=== PATIENT | male | born 1975 | race Two or more races ===

== ENCOUNTER 2017-01-03 08:40 | Emergency (ER) | payer MEDICAID ==
[~2017-01-03] VITALS: Ht 160 cm; Wt 78.0 kg
[~2017-01-03 08:40] MED LIST: IBUP-1542 PO; NO MEDS
[2017-01-03 09:14] VITALS: Ht 160 cm; Wt 78.0 kg
--- NOTE | 2017-01-03 09:47 | ERD ---
ER Documentation Chief Complaint Date/Time DATE: 01/03/17 TIME: 09:40 Chief Complaint ayala today HPI 41-year-old male presents emergency department for headache that is on and off for about a week. Also complains of cough and congestion. stated that there was no changes in his mentation is in the symmetry on his face. Denies that this is the worst headache of his life, head injury, loss of consciousness, dizziness, blurry vision, changes in vision, photophobia, facial pain, ear pain, throat pain, difficulty swallowing, neck pain, shoulder pain, chest pain, cough, hemoptysis, abdominal pain, back pain, loss of appetite, nausea, vomiting, hematochezia, diarrhea, constipation, urinary symptoms, bladder and bowel incontinences, extremity weakness, extremity tenderness, numbness or tingling sensation, difficulty walking, recent travel, recent exposure to illness, recent antibiotic use in the last 3 months, fever, chills. No known drug allergies. No past medical history. No surgical history. Medication: Motrin. 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 Denies smoking, use of alcohol, use of illegal drugs. ROS All systems reviewed and are negative except as per history of present illness. Medications Home Meds Active Scripts Cyclobenzaprine Hcl* (Cyclobenzaprine Hcl*) 10 Mg Tablet, 10 MG PO Q12 Y for pain/muscle pain, #15 TAB Prov:YOLANDA BROWN 01/03/17 Ibuprofen* (Motrin*) 800 Mg Tab, 800 MG PO Q8 Y for PAIN AND OR ELEVATED TEMP, # 30 TAB Prov:YOLANDA BROWN 01/03/17 Amoxicillin* (Amoxicillin*) 500 Mg Cap, 500 MG PO TID for 7 Days, CAP Prov:YOLANDA RBOWN 01/03/17 Ibuprofen* (Motrin*) 600 Mg Tab, 600 MG PO Q6H Y for PAIN AND OR ELEVATED TEMP, #30 TAB Prov:JOSEFINA KENADLL MD 02/03/16 Reported Medications [No Meds] No Conflict Check 10/23/09 Allergies Allergies: Coded Allergies: No Known Allergies (Verified Allergy, Mild, 10/23/09) PMhx/Soc History of Surgery: No Anesthesia Reaction: No Hx Neurological Disorder: No Hx Respiratory Disorders: No Hx Cardiac Disorders: No Hx Psychiatric Problems: No Hx Miscellaneous Medical Probl: No Hx Alcohol Use: No Hx Substance Use: No Hx Tobacco Use: No Smoking Status: Never smoker Physical Exam Vitals Vital Signs Date Time Temp Pulse Resp B/P Pulse Ox O2 Delivery O2 Flow Rate FiO2 01/03/17 09:14 98.1 72 18 125/74 99 Physical Exam Const: [] Head: Atraumatic Eyes: Normal Conjunctiva. Extraocular movement of his eyes is within normal limits. No pain in eye movement. ENT: Normal External Ears, Nose and Mouth. Has frontal and maxillary sinus tenderness on palpation. Neck: Full range of motion..~ No meningismus. Resp: Clear to auscultation bilaterally Cardio: Regular rate and rhythm, no murmurs Abd: Soft, non tender, non distended. Normal bowel sounds Skin: No petechiae or rashes Back: No midline or flank tenderness Ext: No cyanosis, or edema. Supraspinatus tenderness to the left upper back. Neur: Awake and alert 4. Cranial nerves II through XII are intact. Romberg test is negative. Psych: Normal Mood and Affect Procedures/MDM Examination: Please see physical examination. Disease process, medical treatment was explained to the patient and family member. They verbalized understanding and agreed with the medical treatment, and follow-up care. Re-evaluation: Denies headache, dizziness, blurry vision, neck pain, shoulder pain, chest pain, back pain, abdominal pain, nausea, vomiting. No episode of emesis in the emergency department. Alert and oriented 4. Speaks full and clear sentences. Respirations even and unlabored. Lung sounds clear to auscultation. Active bowel sounds. There is no right upper/right lower/ epigastric/left upper/left lower abdominal tenderness and light and deep palpation. Negative on Rovsings sign. Negative Silver sign. Able to jump 5 times without developing right-sided abdominal pain. No peritoneal signs. Ambulatory with steady gait. No neurovascular deficits. No neurological deficits. Cranial nerves II through XII are intact. Romberg test is negative. Consultation: None. Differential diagnosis: Subarachnoid hemorrhage versus stroke versus sinus headache versus sinusitis versus migraine versus cluster headache versus tension headache versus temporal arteritis Medical decision makin-year-old male presents emergency department for headache that is on and off for about a week. Also complains of cough and congestion. stated that there was no changes in his mentation is in the symmetry on his face.Patient's complaint, patient's history about his complaint , my physical findings, my reevaluation are consistent my final diagnosis of sinusitis, musculoskeletal spasms. Medications prescribed are the following: Amoxicillin. Flexeril. Motrin. Patient and family member are made aware of the side effects and adverse reactions of the medications prescribed. Instructed on when to seek emergent and medical attention in case allergic/anaphylactic reactions or severe side effects and or adverse reactions to medications. Patient and family member verbalized understanding. Patient instructed Instructed to follow-up with his PCP in 24-48 hours. Instructed to Call 911 for chest pain, shortness of breath. Advised to come back here in ED as soon as possible for severity of symptoms which includes but not limited to: any new symptoms; shortness of breath/difficulty of breathing; cardiovascular changes; severe gastrointestinal symptoms; signs and symptoms of bleeding and or infection; signs of compartment syndrome/neurovascular changes; neurological changes/deficits. Patient and family member verbalized understanding. Upon discharge, patient is alert and oriented x 4, speaks full and clear sentences, denies pain, has no neurological deficits, has no neurovascular deficits, difficulty of breathing. Breathing even and unlabored. Lung sounds are clear to auscultation. Not in distress. Appears comfortable. Ambulatory with steady gait. Appears satisfied with care provided here in ED. Departure Diagnosis: Primary Impression: Headache Additional Impressions: Sinusitis Muscle spasm Condition: Stable Additional Instructions: Instructed to follow-up with his PCP in 24-48 hours. Instructed to Call 911 for chest pain, shortness of breath. Advised to come back here in ED as soon as possible for severity of symptoms which includes but not limited to: any new symptoms; shortness of breath/difficulty of breathing; cardiovascular changes; severe gastrointestinal symptoms; signs and symptoms of bleeding and or infection; signs of compartment syndrome/neurovascular changes; neurological changes/deficits. Patient and family member verbalized understanding. YOLANDA BROWN Jan 03, 2017 09:47
[2017-01-03] MEDS ORDERED: AMO500 PO (09:48)
[2017-01-03] MEDS ORDERED: IBUP800T25 PO (09:49)
[2017-01-03] MEDS ORDERED: CYCL-319 PO (09:49)
== END 2017-01-03 10:11 | disposition home or self-care (01) ==
LOC: FTE 08:40
DX: R51 Headache (principal); J32.9 Chronic sinusitis, unspecified; M62.838 Other muscle spasm
CPT/HCPCS: 99284